=== PATIENT | male | born 1980 ===

== ENCOUNTER 2017-05-14 19:35 | Emergency (ER) | payer OTHER ==
[2017-05-14 20:16] VITALS: BP 119/76; PULSE 76; RESP 20; TEMP 98.2; O2SAT 98
--- NOTE | 2017-05-14 21:04 | C.PDOC ---
History Of Present Illness 37 y/o male presents to ED with complaints of pain to left 5th toe for 1 month. Patient denies injury to toe, swelling, fever, rash, numbness, weakness or any other complaints at this time. Time Seen by Provider: 05/14/17 20:18 Chief Complaint (Nursing): Lower Extremity Problem/Injury History Per: Patient History/Exam Limitations: no limitations Onset/Duration Of Symptoms: Days Current Symptoms Are (Timing): Still Present Past Medical History Reviewed: Historical Data, Nursing Documentation, Vital Signs Vital Signs: Last Vital Signs Temp 98.2 F 05/14/17 20:10 Pulse 76 05/14/17 20:10 Resp 20 05/14/17 20:10 BP 119/76 05/14/17 20:10 Pulse Ox 98 05/14/17 21:08 - Medical History PMH: No Chronic Diseases Surgical History: No Surg Hx Family History: States: No Known Family Hx - Social History Hx Alcohol Use: No Hx Substance Use: No - Immunization History Hx Tetanus Toxoid Vaccination: No Hx Influenza Vaccination: No Hx Pneumococcal Vaccination: No Review Of Systems Constitutional: Negative for: Fever, Chills Musculoskeletal: Positive for: Foot Pain Skin: Negative for: Rash Neurological: Negative for: Weakness, Numbness Physical Exam - Physical Exam Appears: Non-toxic, No Acute Distress Skin: Warm, Dry, No Rash, No Ecchymosis Head: Atraumatic, Normacephalic Extremity: Normal ROM, Tenderness (to left 5th toe.), No Pedal Edema, Capillary Refill (<2 seconds), No Swelling, Other (Moist area in between toes on left foot ) Pulses: Left Dorsalis Pedis: Normal Neurological/Psych: Oriented x3, Normal Speech, Normal Cognition, Normal Motor, Normal Sensation Gait: Steady ED Course And Treatment O2 Sat by Pulse Oximetry: 98 (RA) Pulse Ox Interpretation: Normal Medical Decision Making Medical Decision Making: left toe pain x 1 month= ibuprofen given in ed. recommend lotrimin, f/u podiatry Disposition Counseled Patient/Family Regarding: Diagnosis, Need For Followup, Rx Given - Disposition Referrals: Podiatry Clinic [Outside] Disposition: HOME/ ROUTINE Disposition Time: 21:12 Condition: GOOD Additional Instructions: Take ibuprofen or Tylenol for pain. Use anti-fungal powder in between 4th and 5th toes on left foot. Follow up with podiatry clinic. Instructions: Athlete's Foot (DC) Forms: [facility] (Syrian), General Discharge Instructions - Clinical Impression Clinical Impression: Toe pain, left, Tinea pedis, left - PA / ACCOUNT RECEIVABLE ASSOCIATE / Resident Statement MD/DO has reviewed & agrees with the documentation as recorded. - Scribe Statement The provider has reviewed the documentation as recorded by the Toyaibkelly Toth All medical record entries made by the Toyaibkelly were at my direction and personally dictated by me. I have reviewed the chart and agree that the record accurately reflects my personal performance of the history, physical exam, medical decision making, and the department course for this patient. I have also personally directed, reviewed, and agree with the discharge instructions and disposition.
== END 2017-05-14 21:17 | disposition home or self-care (01) ==
LOC: C.ER 19:35
DX: B35.3 Tinea pedis (principal); M79.675 Pain in left toe(s)

== ENCOUNTER 2017-08-10 15:15 | Emergency (ER) | payer OTHER ==
[2017-08-10 15:30] VITALS: BP 128/81; PULSE 105; RESP 17; TEMP 98.2; O2SAT 98
--- NOTE | 2017-08-10 15:47 | C.PDOC ---
History Of Present Illness 37 y/o male with sore throat and tactile temp x 2 days. no cough, ear pain or nasal congestion/rhinorrhea. no sick contacts. Time Seen by Provider: 08/10/17 15:36 Chief Complaint (Nursing): ENT Problem History Per: Patient History/Exam Limitations: None Onset/Duration Of Symptoms: Days (3) Current Symptoms Are (Timing): Still Present Quality (Mouth/Throat): Tenderness, Redness Symptoms Have Been: Continuous Severity: Moderate Past Medical History Reviewed: Historical Data, Nursing Documentation, Vital Signs Vital Signs: Last Vital Signs Temp 98.2 F 08/10/17 15:27 Pulse 105 H 08/10/17 15:27 Resp 17 08/10/17 15:27 BP 128/81 08/10/17 15:27 Pulse Ox 98 08/10/17 16:00 Family History: States: Unknown Family Hx - Social History Hx Alcohol Use: No Hx Substance Use: No - Immunization History Hx Tetanus Toxoid Vaccination: No Hx Influenza Vaccination: No Hx Pneumococcal Vaccination: No Review Of Systems Constitutional: Positive for: Fever (subjective) Eyes: Negative for: Pain ENT: Positive for: Throat Pain. Negative for: Ear Pain, Nose Discharge Cardiovascular: Negative for: Chest Pain Respiratory: Negative for: Cough, Shortness of Breath Skin: Negative for: Rash Neurological: Negative for: Weakness, Numbness Physical Exam - Physical Exam Appears: Non-toxic, No Acute Distress Skin: Warm, Dry Head: Atraumatic, Normacephalic Eye(s): bilateral: Normal Inspection Nose: No Discharge Oral Mucosa: Moist Tongue: Normal Appearing, No Swelling Lips: Normal Appearing, No Swelling Teeth: Normal Dentition Throat: Erythema, Exudate (right side), No Drooling, No Mass Neck: Supple Lymphatic: Adenopathy (mild sumbmandibular swelling) ED Course And Treatment O2 Sat by Pulse Oximetry: 98 Medical Decision Making Medical Decision Making: pt with right exudative pharyngitis- tx with penvk Disposition Counseled Patient/Family Regarding: Diagnosis, Need For Followup, Rx Given - Disposition Referrals: [facility] [Outside] Disposition: HOME/ ROUTINE Disposition Time: 15:53 Condition: GOOD Additional Instructions: Take antibiotics until completed., Gargle with warm salty water several tines a day. Tylenol or Motrin for pain. Prescriptions: Penicillin VK [Penicillin VK Tab] 500 mg PO BID #20 tab Instructions: Sore Throat, Adult (DC) Forms: [facility] (American), General Discharge Instructions - Clinical Impression Clinical Impression: Exudative pharyngitis
== END 2017-08-10 16:08 | disposition home or self-care (01) ==
LOC: C.ER 15:15
DX: J02.9 Acute pharyngitis, unspecified (principal)

== ENCOUNTER 2018-01-15 08:48 | Day surgery (SDC) | payer OTHER ==
[~2018-01-15 08:48] MED LIST: Dextrose 5%/0.45% NS 1,000 ML IV SCH; Morphine 10 mg/5 ml Oral Soln PO PRN; ceFAZolin IV 1 gm in Dextrose 1 GM/50 ML BAG IVPB ONE
[2018-01-15] MEDS ORDERED: Midazolam 2 MG/2 ML VIAL ONE (10:40)
[2018-01-15] MEDS ORDERED: Propofol 10 mg/ml Inj (20 ML) ONE (10:40)
[2018-01-15] MEDS ORDERED: Rocuronium 10 mg/ml (5 ml) ONE (11:10)
[2018-01-15] MEDS ORDERED: Neostigmine Methylsulfate 3mg/3ml Syringe IV ONE (11:11)
[2018-01-15] MEDS ORDERED: HYDROmorphone 0.5 mg/0.5 ml ISec IVP PRN (11:30)
[2018-01-15 15:59] VITALS: BP 130/70; PULSE 60; RESP 18; TEMP 98; O2SAT 99
--- NOTE | 2018-01-15 16:58 | OP ---
PROCEDURE DATE: 01/15/2018 PREOPERATIVE DIAGNOSIS: Chronic tonsillitis. POSTOPERATIVE DIAGNOSIS: Chronic tonsillitis. PROCEDURE: Tonsillectomy. SIGNIFICANT FINDINGS: Chronically infected tonsils. DESCRIPTION OF PROCEDURE: The patient was brought into room, placed in supine position. Anesthesia was initiated through an ET tube. The patient was draped in usual manner. Mouth gag was placed in oral cavity, opened and suspended on the [employer] usual manner. Right tonsil was grabbed, pulled medially. Incision was made in the anterior tonsillar pillar using coblation. Dissection was done between tonsil and tonsillar fossa using coblation until the tonsil was removed. Bleeding was controlled using coblation. Next, the other tonsil was grabbed, pulled medially. Incision was made in the anterior tonsillar pillar using coblation. Dissection was done between tonsil and tonsillar fossa using coblation until the tonsil was removed. Bleeding was controlled using coblation. Both tonsillar beds were rubbed vigorously with coblation wand. No bleeding was noted. Mouth gag was let down for 30 seconds, put back up, no bleeding was noted. Mouth gag was taken down and removed. The patient was taken off anesthesia and taken to the recovery room in stable manner. Juan Barba MD
== END 2018-01-15 15:05 | disposition home or self-care (01) ==
LOC: C.SDS 08:48
PROVIDERS: ATTEND Otolaryngology
DX: J35.01 Chronic tonsillitis (principal)
CPT/HCPCS: 42826; 88304; J0690; J1170; J2001; J2250; J2405; J2704; J2710; J3010; J7040